=== PATIENT | male | born 1995 | race Caucasian/White ===

== ENCOUNTER → 2019-04-10 | Outpatient (CLI) | payer OTHER | LOC: COL.RAD 12:41 | DX: M25.552 Pain in left hip (principal) | CPT/HCPCS: J3301; Q9967 ==

== ENCOUNTER → 2019-09-02 | Outpatient (CLI) | payer OTHER | LOC: COL.RAD 10:18 | DX: F44.9 Dissociative and conversion disorder, unspecified (principal) ==